=== PATIENT | female | born 1975 | race Caucasian/White ===

== ENCOUNTER → 2021-08-30 15:11 | Outpatient (CLI) | payer SELFPAY | PROVIDERS: Referring Provider Internal Medicine; Visit Provider Internal Medicine | DX: Z23 Encounter for immunization (principal) | CPT/HCPCS: 90471; 90686 ==

== ENCOUNTER → 2022-08-13 17:10 | Outpatient (CLI) | payer SELFPAY | PROVIDERS: Referring Provider Internal Medicine; Visit Provider Internal Medicine | DX: Z23 Encounter for immunization (principal) | CPT/HCPCS: 90471; 90686 ==

== ENCOUNTER → 2023-01-02 10:33 | Outpatient (CLI) | payer OTHER, SELFPAY | PROVIDERS: PCP Physician Assistant; Visit Provider Physician Assistant | DX: T63.301A Toxic effect of unspecified spider venom, accidental (unintentional), initial encounter (principal) | CPT/HCPCS: 87070; 87205; 87252 ==

== ENCOUNTER → 2023-03-29 08:46 | Outpatient (CLI) | payer OTHER, SELFPAY ==
--- NOTE | 2023-03-29 08:47 | DI.US.S_ITS ---
LIMITED ULTRASOUND OF LEFT BREAST AND AXILLA: 03/29/2023 CLINICAL: Palpable left breast lump. Comparison is made to exam dated: 03/29/2023 mammogram - [facility]. Color flow and real-time ultrasound of the left breast 1 o'clock, 3 o'clock, 6 o'clock, and axilla regions were performed. Milligan scale images of the real-time examination were reviewed. There is a benign 2.9 cm x 2.2 cm x 2.1 cm oval cyst in the left breast at 3 o'clock middle depth 3 cm from the nipple. This oval cyst is anechoic with internal echoes. This correlates as palpated and with mammography findings. Color flow imaging demonstrates that there is no vascularity present. There also is a benign 2.3 cm x 2 cm x 0.8 cm oval cyst in the left breast at 6 o'clock in the retroareolar region 3 cm from the nipple. This oval cyst is anechoic with internal echoes. This correlates with mammography findings. Color flow imaging demonstrates that there is no vascularity present. Additionally, there is a benign 0.8 cm x 0.8 cm x 0.7 cm round cyst in the left breast at 1 o'clock middle depth 3 cm from the nipple. This round cyst displays internal echoes. This correlates as an incidental finding. Color flow imaging demonstrates that there is no vascularity present. No significant abnormalities were seen sonographically in the left axilla. IMPRESSION: BENIGN There is no sonographic evidence of malignancy. The 2.9 cm palpable cyst in the left breast at 3 o'clock middle depth is benign. -A cyst aspiration for symptomatic relief could be considered. Several additional cysts with debris seen on ultrasound. The 2.3 cm cyst in the left breast at 6 o'clock in the retroareolar region is benign. The 0.8 cm cyst in the left breast at 1 o'clock middle depth is benign. No enlarged left axillary lymph nodes. Exam findings were conveyed to the patient. Patient is advised to monitor for significant change. Clinical follow-up as needed. A 1 year screening mammogram is recommended. This exam was interpreted at Station ID: [id number]. Electronically Signed By: Howard Fagan M.D. [facility] [email or web address]/:03/29/2023 11:03:09 letter sent: Normal Exam Ultrasound BI-RADS: 2 Benign
--- NOTE | 2023-03-29 08:47 | DI.MG.S_ITS ---
BILATERAL DIGITAL DIAGNOSTIC MAMMOGRAM 3D/2D: 03/29/2023 CLINICAL: Left breast lump. Baseline exam. No prior exams were available for comparison. Both breasts are heterogeneously dense, which may obscure small masses (category c / 51-75% glandular tissue). There is an oval mass with a circumscribed margin in the left breast central to the nipple middle depth. This correlates as palpated. There are additional circumscribed masses bilaterally which also likely represent cysts. No other significant masses, calcifications, or other findings are seen in either breast. IMPRESSION: INCOMPLETE: NEEDS ADDITIONAL IMAGING EVALUATION The oval mass in the left breast most likely is a cyst and is indeterminate. A targeted ultrasound is recommended and will immediately follow. Based on the Tyrer Cuzick model (a risk assessment model) the patient's lifetime risk is 10.8% and her 10 year risk is 2.3%. According to the ACR, ACS, and NCCN guidelines, an annual breast MRI exam along with mammogram is recommended if the patient's lifetime risk is 20% or greater. This exam was interpreted at Station ID: [id number]. NOTE: For mammograms, a report in lay terms will be sent to the patient. Approximately 15% of breast malignancies will not be visualized mammographically. In the management of a palpable breast mass, a negative mammogram must not discourage biopsy of a clinically suspicious lesion. Electronically Signed By: Howard Fagan M.D. [facility] [email or web address]/:03/29/2023 09:26:11 ACR BI-RADS Category 0: Incomplete [id number]
== END ==
PROVIDERS: PCP Physician Assistant; Referring Provider Physician Assistant; Visit Provider Physician Assistant
DX: N60.02 Solitary cyst of left breast (principal); R92.8 Other abnormal and inconclusive findings on diagnostic imaging of breast
CPT/HCPCS: 76642; 77066; G0279